=== PATIENT | male | born 1985 | race Caucasian/White ===

== ENCOUNTER → 2016-04-25 | Outpatient (CLI) | payer BC ==
[2016-04-25 13:16] LABS: Basophils # (A) 0.1 k/uL (0-0.2); Basophils % (A) 2 %; CH 31.9; CHCM 34.5; Eosinophils # (A) 0.3 k/uL (0-0.7); Eosinophils % (A) 6 %; HCT 47.3 % (39.0-53.0); HDW 2.65; HGB 15.7 gm/dL (13.0-17.5); Luc # (Auto) 0.12; Luc % (Auto) 2; Lymphocytes # (A) 1.4 k/uL (1.0-4.8); Lymphocytes % (A) 29 %; MCH 30.9 pg (25.0-35.0); MCHC 33.2 g/dL (31.0-37.0); MCV 92.9 fL (80.0-100.0); Monocytes # (A) 0.2 k/uL (0-1.0); Monocytes % (A) 5 %; Neutrophils # (A) 2.7 k/uL (1.3-7.7); Neutrophils % (A) 56 %; RBC 5.09 m/uL (4.30-5.90); RDW 12.6 % (11.5-15.5); WBC 4.8 k/uL (3.8-10.6)
[2016-04-25 21:21] LABS: ANA w/Reflex to Titer NEGATIVE (NEGATIVE)
[2016-04-26 07:06] LABS: HIV-1/HIV-2 Ab Screen NONREAC (NON REAC)
== END | disposition home or self-care (01) ==
LOC: LABWHC1 12:14
PROVIDERS: ATTEND Nurse Practitioner Family
DX: J02.9 Acute pharyngitis, unspecified (principal); B37.9 Candidiasis, unspecified; R53.83 Other fatigue
CPT/HCPCS: 36415; 82607; 82947; 84165; 84207; 84439; 84443; 85025; 86038; 86235; 87389

== ENCOUNTER → 2016-05-19 | Outpatient (CLI) | payer BC ==
[2016-05-19 13:21] LABS: Appearance,Urine Clear (Clear); Bilirubin,Urine Negative (Negative); Glucose,Urine (UA) Negative (Negative); Ketones,Urine 4+ (Negative); Leukocyte Esterase,Urine Negative (Negative); Nitrite,Urine Negative (Negative); PH, Urine 5.5 (5.0-8.0); Protein,Urine Trace (Negative); UA Billing (MACRO vs. MICRO) CHEM; Urobilinogen,Urine <2.0 mg/dL (<2.0)
[2016-05-22 14:17] LABS: C-ANCA <1:20 Titer (<1:20); P-ANCA <1:20 Titer (<1:20)
== END | disposition home or self-care (01) ==
LOC: LABWHC1 12:32
PROVIDERS: ATTEND Internal Medicine Infectious Disease
DX: R13.13 Dysphagia, pharyngeal phase (principal)
CPT/HCPCS: 36415; 81003; 85652; 86255; 86431

== ENCOUNTER → 2018-06-26 | Outpatient (CLI) | payer BC ==
--- NOTE | 2018-06-26 09:56 | NM ---
EXAMINATION TYPE: NM hepatobiliary w CCK DATE OF EXAM: 06/26/2018 COMPARISON: NONE HISTORY: Generalized abdominal pain TECHNIQUE: After the intravenous administration of 5.17 mCi Tc 99m Mebrofenin hepatobiliary scintigra phy is performed. Immediate images post injection. FINDINGS: There is satisfactory initial accumulation of tracer by the liver. The gallbladder is visualized wit hin 4 minutes. The small bowel activity is noted within 42 minutes. At one hour CCK was administere d, patient was injected with 1.8 mcg of Kinevac, and gallbladder ejection fraction is calculated at 8 1 %, in the normal range. Therefore there is no scintigraphic evidence of cystic or common bile duct obstruction to suggest acute cholecystitis or gallbladder dyskinesia. IMPRESSION: Exam is within normal limits.
== END | disposition home or self-care (01) ==
LOC: RADNMMAIN 06:40
PROVIDERS: ATTEND Surgery
DX: R10.84 Generalized abdominal pain (principal)
CPT/HCPCS: 78227; A9537; J2805

== ENCOUNTER → 2021-03-09 | Outpatient (CLI) | payer BC ==
--- NOTE | 2021-03-09 14:37 | XR ---
EXAMINATION TYPE: XR chest 2V DATE OF EXAM: 03/09/2021 COMPARISON: Chest x-ray 03/07/2016 HISTORY: Intercostal pain, R07.82 TECHNIQUE: Frontal and lateral views of the chest are obtained. FINDINGS: There is no focal air space opacity, pleural effusion, or pneumothorax seen. The cardiac silhouette size is within normal limits. The osseous structures are intact. Prominent lung volumes with flattening the hemidiaphragms suggests underlying COPD IMPRESSION: No acute cardiopulmonary process.
== END | disposition home or self-care (01) ==
LOC: RADXRMAIN 11:55
PROVIDERS: ATTEND Physician Assistant
DX: R07.82 Intercostal pain (principal)
CPT/HCPCS: 71046

== ENCOUNTER 2021-03-13 19:46 | Emergency (ER) | payer BC ==
[2021-03-13 19:51] VITALS: BP 157/72; PULSE 87; RESP 22; TEMP 97.4
--- NOTE | 2021-03-13 20:29 | ED ---
Chest Pain HPI - General Chief Complaint: Chest Pain Stated Complaint: Chest Pain, High BP Source: patient, family Mode of arrival: ambulatory Limitations: no limitations - History of Present Illness Initial Comments: 36-year-old male presents emergency Department with reported chest wall pain. He states that one week ago he sustained a fall after his dog pulled him to the ground. He has been having some left-sided chest wall pain. He went into his primary care office where they sent him for a chest x-ray. X-ray was done here. He reports that he was not given any results of the tests. He continues to have some left-sided pain especially with movement. Admits to mild shortness of breath. No fevers. He took a deep breath earlier today and felt a pop. He checked his blood pressure and it was high therefore he decided to come into the emergency department. Denies any fevers, productive cough. Admits to a history of high blood pressure however lost a significant amount of weight and no longer needs them. Reports that his blood pressure was normal in office. No other alleviating, precipitating or modifying factors - Related Data Home Medications Medication Instructions Recorded Confirmed Famotidine [Pepcid] 40 mg PO DAILY 03/13/21 03/13/21 Previous Rx's Medication Instructions Recorded Lidocaine 5% Patch [Lidoderm] 1 patch TOPICAL DAILY #25 patch 03/13/21 Allergies Allergy/AdvReac Type Severity Reaction Status Date / Time No Known Allergies Allergy Verified 03/13/21 20:11 Review of Systems ROS Statement: Those systems with pertinent positive or pertinent negative responses have been documented in the HPI. ROS Other: All systems not noted in ROS Statement are negative. EKG Findings - EKG Comments: EKG Findings:: EKG demonstrates normal sinus rhythm with ventricular rate of 85. IA interval 150. Qrs is 100. QTC 440. No acute ST segment elevation or depressions concerning for ischemic changes Past Medical History Past Medical History: GERD/Reflux, Hypertension Additional Past Medical History / Comment(s): DIZZINESS, FATIGUE, WEAKNESS FOR PAST FEW WEEKS. HX ALISA. TOLD TO STOP HTN RX LAST WEEK, PER , PATIENT MONITORING. History of Any Multi-Drug Resistant Organisms: None Reported Past Surgical History: Orthopedic Surgery Additional Past Surgical History / Comment(s): HX PAIN PROC X1. RT RING FINGER SURG. Past Anesthesia/Blood Transfusion Reactions: Family History of Problems w/ Anesthesia Additional Past Anesthesia/Blood Transfusion Reaction / Comment(s): FATHER HAS PROBLEM W/ "NOVOCAINE, ETC." Past Psychological History: Anxiety, Depression Smoking Status: Former smoker Past Alcohol Use History: Rare Past Drug Use History: Marijuana - Past Family History Father Family Medical History: No Reported History General Exam Limitations: no limitations Course Vital Signs 03/13/21 19:48 Temperature 97.4 F L Pulse Rate 87 Respiratory 22 Rate Blood Pressure 157/72 O2 Sat by Pulse 100 Oximetry Chest Pain MDM - [facility] Upon arrival patient is placed into room 20. A thorough history and physical exam is performed. Patient does not demonstrate any signs of increased work of breathing. Lung sounds are clear. He is sent over for a left-sided rib x-ray with chest which demonstrates no acute fractures. No infiltrate. No pneumothorax. I did repeat the patient's blood pressure and it was 139/72. Patient will be given a prescription for Lidoderm patches. Instructed to follow up with his primary care doctor for continued evaluation of his blood pressures. Recommend that he find a blood pressure cuff for at home. Return to the emergency room for any new or worsening symptoms. Patient was discharged home in stable condition Disposition Clinical Impression: Chest wall pain Disposition: HOME SELF-CARE Condition: Stable Instructions (If sedation given, give patient instructions): Chest Wall Pain (ED) Additional Instructions: Please follow-up with your primary care doctor in 2-4 days. Return to the emergency room for any new or worsening symptoms Prescriptions: Lidocaine 5% Patch [Lidoderm] 1 patch TOPICAL DAILY #25 patch Is patient prescribed a controlled substance at d/c from ED?: No Referrals: Mary Alvares DO [Primary Care Provider] - 1-2 days Time of Disposition: 21:04
--- NOTE | 2021-03-13 20:38 | XR ---
EXAMINATION TYPE: XR ribs LT w pa chest xray DATE OF EXAM: 03/13/2021 COMPARISON: Chest x-ray 03/09/2021 HISTORY: Fall. Left side pain. TECHNIQUE: 5 views FINDINGS: Heart and mediastinum are normal. Lungs are clear of infiltrate. There is no pleural effusi on or pneumothorax. Left lung is clear of infiltrate. There is no evidence of a rib fracture. IMPRESSION: Normal chest. Normal left ribs.
== END 2021-03-13 21:12 | disposition home or self-care (01) ==
LOC: EC 19:46
DX: R07.89 Other chest pain (principal); K21.9 Gastro-esophageal reflux disease without esophagitis; I10 Essential (primary) hypertension; F41.9 Anxiety disorder, unspecified; F32.A Depression, unspecified; F12.90 Cannabis use, unspecified, uncomplicated; Z87.891 Personal history of nicotine dependence
CPT/HCPCS: 93005; 99285

== ENCOUNTER 2023-10-20 17:06 | Emergency (ER) | payer BC, OTHER ==
[2023-10-20 17:12] VITALS: TEMP 97.8
--- NOTE | 2023-10-20 18:50 | CT ---
EXAMINATION TYPE: CT brain wo con CT DLP: 1142.7 mGycm, Automated exposure control for dose reduction was used. DATE OF EXAM: 10/20/2023 6:44 PM COMPARISON: . CLINICAL INDICATION:Male, 38 years old with history of head injury, hit head on cabinet TECHNIQUE: Brain: Axial CT images of the brain were obtained with coronal and sagittal reformats created and rev iewed. Contrast used: None. Oral contrast used: None. FINDINGS: Brain: Extra-axial spaces: No abnormal extra-axial fluid collections. Ventricular system: Within normal limits Cerebral parenchyma: No acute intraparenchymal hemorrhage or mass effect. The cazares-white junction is well differentiated. Cerebellum: Unremarkable. Mass effect: No evidence of midline shift. Intracranial vasculature: unremarkable Soft tissues: Normal. Calvarium/osseous structures: No depressed skull fracture. Paranasal sinuses and mastoid air cells: Mild scattered paranasal sinus disease. Visualized orbits: Orbital contents are intact. IMPRESSION: No acute intracranial process.
--- NOTE | 2023-10-20 19:02 | ED ---
Head Injury HPI - General Chief complaint: Head Injury Stated complaint: Head injury, headache, dizziness Time Seen by Provider: 10/20/23 17:19 Source: patient Mode of arrival: ambulatory Limitations: no limitations - History of Present Illness Initial comments: 38-year-old male presenting for evaluation post head injury. Patient hit his head on a cupboard at home earlier today. He states that immediately afterwards he began feeling lightheaded, family member states he was pale and sweaty. He went outside to get in the car to come to the hospital when he states that he had to go to his knees because he felt he was going to pass out. He did not lose consciousness. He is on no blood thinners. At this time he is not experiencing any symptoms. He denies any nausea, vomiting, vision or hearing changes, numbness, tingling, neck pain. - Related Data Home Medications Medication Instructions Recorded Confirmed Famotidine [Pepcid] 40 mg PO DAILY 03/13/21 03/13/21 Previous Rx's Medication Instructions Recorded Lidocaine 5% Patch [Lidoderm] 1 patch TOPICAL DAILY #25 patch 03/13/21 Allergies/Adverse reactions: Allergies Allergy/AdvReac Type Severity Reaction Status Date / Time No Known Allergies Allergy Verified 10/20/23 17:12 Review of Systems ROS Statement: Those systems with pertinent positive or pertinent negative responses have been documented in the HPI. ROS Other: All systems not noted in ROS Statement are negative. Past Medical History Past Medical History: GERD/Reflux, Hypertension Additional Past Medical History / Comment(s): DIZZINESS, FATIGUE, WEAKNESS FOR PAST FEW WEEKS. HX ALISA. TOLD TO STOP HTN RX LAST WEEK, PER , PATIENT MONITORING. History of Any Multi-Drug Resistant Organisms: None Reported Past Surgical History: Orthopedic Surgery Additional Past Surgical History / Comment(s): HX PAIN PROC X1. RT RING FINGER SURG. Past Anesthesia/Blood Transfusion Reactions: Family History of Problems w/ Anesthesia Additional Past Anesthesia/Blood Transfusion Reaction / Comment(s): FATHER HAS PROBLEM W/ "NOVOCAINE, ETC." Past Psychological History: Anxiety, Depression Smoking Status: Former smoker Past Alcohol Use History: Rare Past Drug Use History: Marijuana - Past Family History Father Family Medical History: No Reported History General Exam Limitations: no limitations General appearance: alert, in no apparent distress Head exam: Present: atraumatic, normocephalic Eye exam: Present: normal appearance, PERRL, EOMI Pupils: Present: normal accommodation Neck exam: Present: normal inspection. Absent: meningismus Respiratory exam: Absent: respiratory distress Cardiovascular Exam: Present: regular rate Neurological exam: Present: alert, oriented X3 Expanded Eye Response: (4) open spontaneously Motor Response: (6) obeys commands Verbal Response: (5) oriented [place] Total: 15 Psychiatric exam: Present: normal affect, normal mood Skin exam: Present: warm, dry Course Vital Signs 10/20/23 10/20/23 10/20/23 17:08 18:20 19:14 Temperature 97.8 F 97.8 F Pulse Rate 71 60 Respiratory 20 18 Rate Blood Pressure 135/77 128/76 124/72 O2 Sat by Pulse 98 98 Oximetry Medical Decision Making - Medical Decision Making Was pt. sent in by a medical professional or institution (ASHLI Oden, CHEMICAL INSTRUMENTATION OFFICER, urgent care, hospital, or snf...) When possible be specific @ -No Did you speak to anyone other than the patient for history (EMS, parent, family, police, friend...)? What history was obtained from this source @ -No Did you review nursing and triage notes (agree or disagree)? Why? @ -I reviewed and agree with nursing and triage notes Were old charts reviewed (outside hosp., previous admission, EMS record, old EKG, old radiological studies, urgent care reports/EKG's, snf records)? Report findings @ -No old charts were reviewed Differential Diagnosis (chest pain, altered mental status, abdominal pain women, abdominal pain men, vaginal bleeding, weakness, fever, dyspnea, syncope, headache, dizziness, GI bleed, back pain, seizure, CVA, palpatations, mental health, musculoskeletal)? @ -Differential includes uncomplicated head injury, concussion, acute hemorrhage, fracture, this is not an all-inclusive list EKG interpreted by me (3pts min.). @ -As above X-rays interpreted by me (1pt min.). @ -None done CT interpreted by me (1pt min.). @ -CT shows no acute intracranial process U/S interpreted by me (1pt. min.). @ -None done What testing was considered but not performed or refused? (CT, X-rays, U/S, labs)? Why? @ -None What meds were considered but not given or refused? Why? @ -None Did you discuss the management of the patient with other professionals (professionals i.e. Dr., PA, CHEMICAL INSTRUMENTATION OFFICER, lab, RT, psych nurse, social services director, wire brush operator, teacher, staff nuclear weapons officer, counter caser)? Give summary @ -No Was smoking cessation discussed for >3mins.? @ -No Was critical care preformed (if so, how long)? @ -No Were there social determinants of health that impacted care today? How? (Homelessness, low income, unemployed, alcoholism, drug addiction, transportation, low edu. Level, literacy, decrease access to med. care, penitentiary, rehab)? @ -No Was there de-escalation of care discussed even if they declined (Discuss DNR or withdrawal of care, Hospice)? DNR status @ -No What co-morbidities impacted this encounter? (DM, HTN, Smoking, COPD, CAD, Cancer, CVA, ARF, Chemo, Hep., AIDS, mental health diagnosis, sleep apnea, morbid obesity)? @ -None Was patient admitted / discharged? Hospital course, mention meds given and route, prescriptions, significant lab abnormalities, going to OR and other pertinent info. @ -38-year-old male presenting for evaluation after head injury. Negative head CT. Patient feels better and is discharged home. Follow-up with PCP. Report back to ER with any new or worsening symptoms. Discussed return parameters and answered all questions. Patient conveyed verbal understanding and agreed to the plan. I discussed this case in detail with my attending Dr. Galvan Undiagnosed new problem with uncertain prognosis? @ -No Drug Therapy requiring intensive monitoring for toxicity (Heparin, Nitro, Insul in, Cardizem)? @ -No Were any procedures done? @ -No Diagnosis/symptom? @ -Head injury, concussion Acute, or Chronic, or Acute on Chronic? @ -Acute Uncomplicated (without systemic symptoms) or Complicated (systemic symptoms)? @ -Uncomplicated Side effects of treatment? @ -No Exacerbation, Progression, or Severe Exacerbation? @ -No Poses a threat to life or bodily function? How? (Chest pain, [place], [place], pneumonia, PE, COPD, DKA, ARF, appy, cholecystitis, CVA, Diverticulitis, Homicidal, Suicidal, threat to staff... and all critical care pts) @ -Low likelihood Disposition Clinical Impression: Closed head injury, Concussion without loss of consciousness Disposition: HOME SELF-CARE Condition: Good Instructions (If sedation given, give patient instructions): Concussion (ED), Head Injury (ED) Additional Instructions: Follow-up with your PCP. Report back to ER with any new or worsening symptoms. Alternate Motrin and Tylenol as needed for pain control. Is patient prescribed a controlled substance at d/c from ED?: No Referrals: Mary Alvares DO [Primary Care Provider] - 1-2 days Time of Disposition: 19:02
[2023-10-20 19:16] VITALS: BP 124/72; PULSE 60; RESP 18
== END 2023-10-20 19:14 | disposition home or self-care (01) ==
LOC: EC 17:06
DX: S06.0X0A Concussion without loss of consciousness, initial encounter (principal); R40.2362 Coma scale, best motor response, obeys commands, at arrival to emergency department; R40.2142 Coma scale, eyes open, spontaneous, at arrival to emergency department; R40.2252 Coma scale, best verbal response, oriented, at arrival to emergency department; Z87.891 Personal history of nicotine dependence; W22.8XXA Striking against or struck by other objects, initial encounter; Y92.009 Unspecified place in unspecified non-institutional (private) residence as the place of occurrence of the external cause
CPT/HCPCS: 70450; 99283